=== PATIENT | female | born 1940 | race Caucasian/White ===

== ENCOUNTER 2017-05-31 21:08 | Inpatient (IN) | payer OTHER ==
[~2017-05-31] VITALS: Ht 160 cm; Wt 96.9 kg
[2017-05-31 21:41] LABS: CONDITION Y; DEFINITIVE SEE PRINTOUT; Hemoglobin 17.4 g/dL (12.2-16.2); Mean Corpuscular Hgb Conc. 32.4 g/dL (32.0-36.0); SUSPECT SEE PRINTOUT
[2017-05-31] MEDS ORDERED: VANCOMYCIN 1GM/250ML D5W 250 ML IV ONE ×2 (21:45→22:00)
[2017-05-31] MEDS ORDERED: cefTRIAXone 1GM/50ML D5W 50 ML IV ONE ×2 (21:46→22:00)
[2017-05-31 21:59] LABS: Hematocrit 53.8 % (36.0-46.0); Mean Corpuscular Hemoglobin 29.4 pg (28.0-32.0); Mean Corpuscular Volume 90.7 fL (80.0-100.0); Mean Platelet Volume 8.7 fL (6.9-10.8); Platelet Count (auto) 431 10^3/uL (140-450); Red Cell Distribution Width 15.9 % (11.8-14.3); White Blood Cell 21.5 10^3/uL (4.4-10.8)
[2017-05-31] MEDS ORDERED: ONDANSETRON HCL 4 MG/2 ML VIAL IV ONE (22:00)
[2017-05-31] MEDS ORDERED: HYDROmorphone HCL 2 MG/ML VL IV ONE (22:00)
[2017-05-31 22:01] LABS: INR 1.46 (0.9-1.15); Myelocytes % 0; Partial Thromboplastin Time 33.1 sec (22.64-33.71); Promyelocytes % 0; Reactive Lymphocytes 0
[2017-05-31 22:06] LABS: BUN/Creatinine Ratio 17.2; Calcium 8.5 mg/dL (8.5-10.1); Potassium 3.9 mmol/L (3.5-5.1)
[2017-05-31 22:11] LABS: Bilirubin, Total 0.9 mg/dL (0.2-1.0); Total Protein 6.3 g/dL (6.4-8.2)
[2017-05-31 22:44] LABS: Burr Cells MODERATE; Metamyelocytes % 2; Tear Drop Cells FEW
[2017-05-31 22:45] LABS: Large Platelets FEW; Platelet Estimate Adequa
[2017-05-31 22:53] LABS: B-Type Natriuretic Peptide 1048.56 pg/mL (0-100)
[2017-05-31 22:55] LABS: Temperature: 20.9 C (20.0-25.0)
[2017-06-01] VITALS (17 sets, daily range): BP systolic 84–115; BP diastolic 49–70
[2017-06-01] MEDS ORDERED: SODIUM CHLORIDE 0.9% 1,000 ML IV ONE
[2017-06-01 00:41] LABS: Lactic Acid w/Reflex 8.6 mmol/L (0.4-2.0)
[2017-06-01 00:44] LABS: REFLEX LACTIC ACID YES OR NO YES
[2017-06-01] MEDS ORDERED: DIGOXIN (250MCG/ML) 2 ML AMPULE IV ONE (02:30)
[2017-06-01] MEDS ORDERED: FUROSEMIDE 20 MG/2 ML VIAL IV ONE ×2 (02:30→04:30)
[2017-06-01] MEDS ORDERED: DILTIAZEM HCL 25 MG/5 ML VIAL IV ONE (02:30)
[2017-06-01] MEDS ORDERED: ONDANSETRON HCL 4 MG/2 ML VIAL IV PRN (04:30)
[2017-06-01] MEDS ORDERED: NITROGLYCERIN 0.4 MG SL TAB SL PRN (04:30)
[2017-06-01] MEDS ORDERED: ALBUMIN 5% 250 ML IV ONE (04:30)
[2017-06-01] MEDS ORDERED: ACETAMINOPHEN 325 MG TAB PO PRN (04:30)
[2017-06-01] MEDS ORDERED: VANCOMYCIN PER PHARMACY 0 MG IV SCH (04:30)
[2017-06-01] MEDS ORDERED: ENOXAPARIN SOD 100 MG/1 ML SYRINGE SC ONE (04:30)
[2017-06-01] MEDS ORDERED: AMIODARONE HCL 150 MG in D5W 5% 100 ML IV ONE (04:30)
[2017-06-01] MEDS ORDERED: MORPHINE SULF INJ 2 MG/ML SYRINGE 1ML IV PRN (04:30)
[2017-06-01] MEDS ORDERED: AMIODARONE HCL 900 MG in DEXTROSE 500 ML IV SCH (04:31)
[2017-06-01] MEDS: NOREPINEPHRINE BITARTRATE 250 ML IV SCH ×2 (04:36→22:00)
[2017-06-01 04:53] LABS: Allen Test Yes; Blood 02Sat 96.1 % (96-100); Blood COHb 0.1 % (0.5-1.5); Blood MetHb 0.4 % (0.0-1.5); HCO3 18.2 mmol/L (22-26.0); HHb 3.9 % (0.0-5.0); MODE NASAL CANNULA; O2Hb 95.6 % (94.0-97.0); PCO2 32.7 mmHg (35.0-45.0); PCO2(T) 32.7 mmHg (35.0-45.0); PO2 91.4 mmHg (80.0-100.0); PO2(T) 91.4 mmHg (80.0-100.0); Room 1017-ERT; Sample Type Arterial; pH 7.363 (7.350-7.450)
[2017-06-01] MEDS: SODIUM CHLORIDE 0.9% 1,000 ML IV SCH ×2 (05:00→21:44)
[2017-06-01] MEDS ORDERED: AMIODARONE HCL (50 MG/ ML) 3 ML VIAL IV ONE (05:34)
[2017-06-01 05:51] LABS: Albumin 1.7 g/dL (3.4-5.0); BUN/Creatinine Ratio 20.3; Calcium 8.1 mg/dL (8.5-10.1); Potassium 3.5 mmol/L (3.5-5.1)
[2017-06-01 05:54] LABS: Bilirubin, Total 0.6 mg/dL (0.2-1.0); Total Protein 5.1 g/dL (6.4-8.2)
[2017-06-01] MEDS ORDERED: FUROSEMIDE 20 MG/2 ML VIAL IV SCH (06:00)
[2017-06-01 06:37] LABS: Urine Bilirubin Negative (Negative); Urine Blood Negative /uL (Negative); Urine Color Yellow (Yellow); Urine Glucose Normal (Normal); Urine Hyaline Cast FEW /lpf (0 - 2); Urine Ketone TRACE (Negative); Urine Mucus FEW (None Seen); Urine Nitrite Negative (Negative); Urine RBC <1 /hpf (0 - 4); Urine Urobilinogen Normal (Negative); Urine pH 5.5 (5.0-8.0)
[2017-06-01] MEDS ORDERED: FURO80TA PO (08:30)
[2017-06-01] MEDS ORDERED: PHEN1TAB64 PO (08:30)
[2017-06-01] MEDS ORDERED: MORP30TA39 PO (08:30)
[2017-06-01] MEDS ORDERED: POTA10TA51 PO (08:34)
[2017-06-01] MEDS ORDERED: LEVO-28 PO (08:34)
[2017-06-01] MEDS ORDERED: CLOP75TA28 PO (08:34)
[2017-06-01] MEDS ORDERED: DOXY50CA PO (08:34)
[2017-06-01] MEDS ORDERED: cefTRIAXone 1GM/50ML D5W 50 ML IV SCH (09:00)
[2017-06-01] MEDS: PANTOPRAZOLE 40 MG/10 ML VIAL IV SCH (10:30)
[2017-06-01] MEDS: CLOPIDOGREL BISULFATE 75 MG TAB PO SCH (10:30)
[2017-06-01] MEDS: ENOXAPARIN SOD 40 MG/0.4 ML SYRINGE SC SCH (10:30)
[2017-06-01] MEDS: AMIODARONE HCL 900 MG in DEXTROSE 500 ML IV SCH (10:30)
[2017-06-01] MEDS ORDERED: PIPERACILLIN-TAZO 4.5GM 100 ML IV SCH ×2 (12:00)
[2017-06-01] MEDS: MORPHINE SULF 30 mg ER tab PO SCH ×2 (12:42→18:30)
[2017-06-01] MEDS ORDERED: ALBUTEROL SULF 2.5 MG/0.5ML(0.5%) NEB SOLN ONE (14:26)
[2017-06-01] MEDS ORDERED: IPRATROPIUM BROM 0.5 MG/2.5ML INH SOL ONE (14:26)
[2017-06-01] MEDS ORDERED: BUMETANIDE (0.25MG/ML) 4 ML VIAL IV ONE (14:45)
[2017-06-01] MEDS: CLINDAMYCIN 900MG IV 50 ML IV SCH ×2 (15:42→21:46)
[2017-06-01] MEDS: PHENYLEPHRINE INJ 20 MG in SODIUM CHL 0.9% 250 ML IV SCH ×2 (17:41→23:10)
[2017-06-01] MEDS ORDERED: VANCOMYCIN 1,250 MG in D5W 5% 250 ML IV SCH (18:00)
[2017-06-01] MEDS ORDERED: VANCOMYCIN 1,250 MG in D5W 5% 250 ML IV ONE (18:00)
[2017-06-01] MEDS: ALBUTEROL SULF 2.5 MG/0.5ML(0.5%) NEB SOLN NEB SCH (18:04)
[2017-06-01] MEDS: IPRATROPIUM BROM 0.5 MG/2.5ML INH SOL NEB SCH (18:04)
[2017-06-02] VITALS (96 sets, daily range): BP systolic 74–154; BP diastolic 40–84
[2017-06-02] MEDS: ALBUTEROL SULF 2.5 MG/0.5ML(0.5%) NEB SOLN NEB SCH ×4 (00:37→18:35)
[2017-06-02] MEDS: IPRATROPIUM BROM 0.5 MG/2.5ML INH SOL NEB SCH ×4 (00:37→18:35)
[2017-06-02] MEDS: NOREPINEPHRINE BITARTRATE 250 ML IV SCH ×2 (02:15→06:45)
[2017-06-02] MEDS: PHENYLEPHRINE INJ 20 MG in SODIUM CHL 0.9% 250 ML IV SCH ×2 (02:33→06:40)
[2017-06-02] MEDS: CLINDAMYCIN 900MG IV 50 ML IV SCH ×3 (05:50→21:51)
[2017-06-02] MEDS: MORPHINE SULF 30 mg ER tab PO SCH ×4 (05:51→18:24)
[2017-06-02] MEDS ORDERED: BUMETANIDE (0.25MG/ML) 4 ML VIAL IV SCH (06:00)
[2017-06-02 06:41] LABS: CONDITION Y; Hemoglobin 14.3 g/dL (12.2-16.2); Mean Corpuscular Hemoglobin 29.6 pg (28.0-32.0); Mean Corpuscular Hgb Conc. 33.3 g/dL (32.0-36.0); Mean Corpuscular Volume 88.9 fL (80.0-100.0); Platelet Count (auto) 429 10^3/uL (140-450); Red Cell Distribution Width 16.1 % (11.8-14.3); SUSPECT SEE PRINTOUT; White Blood Cell 28.6 10^3/uL (4.4-10.8)
[2017-06-02] MEDS: AMIODARONE HCL 900 MG in DEXTROSE 500 ML IV SCH ×2 (06:45→10:31)
[2017-06-02 06:48] LABS: Metamyelocytes % 0; Myelocytes % 0; Promyelocytes % 0; Reactive Lymphocytes 0
[2017-06-02 07:16] LABS: Albumin 1.6 g/dL (3.4-5.0); BUN/Creatinine Ratio 21.1; Bilirubin, Total 0.8 mg/dL (0.2-1.0); Calcium 7.5 mg/dL (8.5-10.1); Potassium 4.2 mmol/L (3.5-5.1); Total Protein 5.3 g/dL (6.4-8.2)
[2017-06-02 07:19] LABS: Platelet Estimate Adequate; RBC Morphology Normal
[2017-06-02] MEDS: ENOXAPARIN SOD 40 MG/0.4 ML SYRINGE SC SCH (09:38)
[2017-06-02] MEDS: PANTOPRAZOLE 40 MG/10 ML VIAL IV SCH (09:38)
[2017-06-02] MEDS ORDERED: DOXYCYCLINE HYC 100MG/250ML 250 ML IV SCH (10:00)
[2017-06-02] MEDS: CLOPIDOGREL BISULFATE 75 MG TAB PO SCH (10:05)
[2017-06-02] MEDS: POTASSIUM CHL 20 Meq TABLET PO SCH (10:05)
[2017-06-02] MEDS ORDERED: METOPROLOL TARTRATE 25 MG TAB PO ONE (10:45)
[2017-06-02] MEDS: ALBUMIN 25% 100 ML IV SCH (11:30)
[2017-06-02] MEDS: PHENYLEPHRINE INJ 40 MG in SODIUM CHL 0.9% 250 ML IV SCH (12:21)
[2017-06-02] MEDS: BUMETANIDE (0.25MG/ML) 4 ML VIAL IV SCH (12:34)
[2017-06-02] MEDS: SODIUM CHLORIDE 0.9% 1,000 ML IV SCH (14:38)
[2017-06-02] MEDS ORDERED: CEFTRIAXONE SODIUM 2 GM in D5W 5% 50 ML IV ONE (16:15)
[2017-06-02] MEDS: LINEZOLID 600MG/300ML 300 ML IV SCH (18:24)
[2017-06-02] MEDS: METOPROLOL TARTRATE 25 MG TAB PO SCH (22:00)
[2017-06-03] VITALS (94 sets, daily range): BP systolic 94–155; BP diastolic 42–84
[2017-06-03] MEDS: IPRATROPIUM BROM 0.5 MG/2.5ML INH SOL NEB SCH ×4 (00:33→19:09)
[2017-06-03] MEDS: ALBUTEROL SULF 2.5 MG/0.5ML(0.5%) NEB SOLN NEB SCH ×4 (00:33→19:09)
[2017-06-03] MEDS: BUMETANIDE (0.25MG/ML) 4 ML VIAL IV SCH ×2 (01:00→13:25)
[2017-06-03 03:33] LABS: Hematocrit 44.1 % (36.0-46.0); Hemoglobin 14.1 g/dL (12.2-16.2); Mean Corpuscular Hemoglobin 28.9 pg (28.0-32.0); Mean Corpuscular Volume 90.5 fL (80.0-100.0); Mean Platelet Volume 7.7 fL (6.9-10.8); Platelet Count (auto) 320 10^3/uL (140-450); Red Cell Distribution Width 16.5 % (11.8-14.3); White Blood Cell 29.3 10^3/uL (4.4-10.8)
[2017-06-03 03:39] LABS: Metamyelocytes % 0; Myelocytes % 0; Promyelocytes % 0; Reactive Lymphocytes 0
[2017-06-03] MEDS: PHENYLEPHRINE INJ 40 MG in SODIUM CHL 0.9% 250 ML IV SCH ×2 (03:55→20:35)
[2017-06-03 03:58] LABS: Albumin 2.4 g/dL (3.4-5.0); BUN/Creatinine Ratio 23.9; Potassium 3.4 mmol/L (3.5-5.1)
[2017-06-03 04:01] LABS: Bilirubin, Total 0.8 mg/dL (0.2-1.0)
[2017-06-03 04:03] LABS: Anisocytosis Slight; Platelet Estimate Adequate
[2017-06-03] MEDS: MORPHINE SULF 30 mg ER tab PO SCH ×4 (06:00→17:53)
[2017-06-03] MEDS: LINEZOLID 600MG/300ML 300 ML IV SCH ×2 (06:00→17:53)
[2017-06-03] MEDS: CLINDAMYCIN 900MG IV 50 ML IV SCH ×3 (06:05→22:00)
[2017-06-03] MEDS: SODIUM CHLORIDE 0.9% 1,000 ML IV SCH ×2 (06:21→23:01)
[2017-06-03] MEDS: CEFTRIAXONE SODIUM 2 GM in D5W 5% 50 ML IV SCH (09:54)
[2017-06-03] MEDS: POTASSIUM CHL 20 Meq TABLET PO SCH (09:54)
[2017-06-03] MEDS: PANTOPRAZOLE 40 MG/10 ML VIAL IV SCH (09:54)
[2017-06-03] MEDS: CLOPIDOGREL BISULFATE 75 MG TAB PO SCH (09:55)
[2017-06-03] MEDS: ENOXAPARIN SOD 40 MG/0.4 ML SYRINGE SC SCH (09:55)
[2017-06-03] MEDS: AMIODARONE HCL 900 MG in DEXTROSE 500 ML IV SCH (09:55)
[2017-06-03] MEDS: METOPROLOL TARTRATE 25 MG TAB PO SCH ×2 (09:55→22:26)
[2017-06-03] MEDS: ALBUMIN 25% 100 ML IV SCH ×2 (12:00)
[2017-06-03] MEDS: HYDROcodone-ACET 5/325MG TAB PO PRN (12:53)
[2017-06-03] MEDS ORDERED: LIDOCAINE 1% HCL (LOCAL ANESTH.) INJ 20ML MDV ID ONE (20:45)
[2017-06-03] MEDS: SODIUM CHLOR 0.9% PF (SALINE LOCK) 10ML VIAL IV SCH (22:26)
[2017-06-04] VITALS (57 sets, daily range): BP systolic 102–155; BP diastolic 41–89
[2017-06-04] MEDS: ALBUMIN 25% 100 ML IV SCH
[2017-06-04] MEDS: BUMETANIDE (0.25MG/ML) 4 ML VIAL IV SCH ×2 (01:00→13:00)
[2017-06-04] MEDS: NOREPINEPHRINE BITARTRATE 250 ML IV SCH (02:30)
[2017-06-04 03:35] LABS: Hematocrit 42.3 % (36.0-46.0); Hemoglobin 14.2 g/dL (12.2-16.2); Mean Corpuscular Hemoglobin 29.1 pg (28.0-32.0); Mean Corpuscular Hgb Conc. 33.5 g/dL (32.0-36.0); Mean Corpuscular Volume 86.7 fL (80.0-100.0); Mean Platelet Volume 7.9 fL (6.9-10.8); Platelet Count (auto) 277 10^3/uL (140-450); Red Cell Distribution Width 15.7 % (11.8-14.3); White Blood Cell 20.9 10^3/uL (4.4-10.8)
[2017-06-04 03:39] LABS: Metamyelocytes % 0; Myelocytes % 0; Promyelocytes % 0; Reactive Lymphocytes 0
[2017-06-04 04:06] LABS: Albumin 2.8 g/dL (3.4-5.0); BUN/Creatinine Ratio 26.2; Bilirubin, Total 0.9 mg/dL (0.2-1.0); Calcium 8.5 mg/dL (8.5-10.1); Total Protein 6.4 g/dL (6.4-8.2)
[2017-06-04 04:11] LABS: Potassium 2.6 mmol/L (3.5-5.1)
[2017-06-04 04:43] LABS: Platelet Estimate Adequate; Stomatocytes Few
[2017-06-04] MEDS: MORPHINE SULF 30 mg ER tab PO SCH ×4 (06:00→17:33)
[2017-06-04] MEDS: LINEZOLID 600MG/300ML 300 ML IV SCH ×2 (06:01→17:33)
[2017-06-04] MEDS: CLINDAMYCIN 900MG IV 50 ML IV SCH ×3 (06:01→23:05)
[2017-06-04] MEDS: IPRATROPIUM BROM 0.5 MG/2.5ML INH SOL NEB SCH ×4 (06:26→19:09)
[2017-06-04] MEDS: ALBUTEROL SULF 2.5 MG/0.5ML(0.5%) NEB SOLN NEB SCH ×4 (06:26→19:09)
[2017-06-04] MEDS: POTASSIUM CHL 20MEQ/100ML 100 ML IV SCH ×2 (08:11→09:24)
[2017-06-04] MEDS: PANTOPRAZOLE 40 MG/10 ML VIAL IV SCH (09:13)
[2017-06-04] MEDS: CLOPIDOGREL BISULFATE 75 MG TAB PO SCH (09:14)
[2017-06-04] MEDS: POTASSIUM CHL 20 Meq TABLET PO SCH (09:14)
[2017-06-04] MEDS: METOPROLOL TARTRATE 25 MG TAB PO SCH ×2 (09:14→22:00)
[2017-06-04] MEDS: HYDROcodone-ACET 5/325MG TAB PO PRN ×3 (09:14→23:07)
[2017-06-04] MEDS: ENOXAPARIN SOD 40 MG/0.4 ML SYRINGE SC SCH (09:15)
[2017-06-04] MEDS: SODIUM CHLOR 0.9% PF (SALINE LOCK) 10ML VIAL IV SCH ×2 (09:15→22:00)
[2017-06-04] MEDS: CEFTRIAXONE SODIUM 2 GM in D5W 5% 50 ML IV SCH (09:24)
[2017-06-04] MEDS ORDERED: SOD CHL 0.9%/ KCL 40MEQ 1,000 ML IV SCH (11:45)
[2017-06-04] MEDS: SOD CHL 0.9%/ KCL 40MEQ 1,000 ML IV SCH ×2 (11:45→23:08)
[2017-06-04] MEDS: PHENYLEPHRINE INJ 40 MG in SODIUM CHL 0.9% 250 ML IV SCH (13:15)
[2017-06-04] MEDS ORDERED: POTASSIUM CHL 20 Meq TABLET PO ONE ×3 (15:05→20:00)
[2017-06-05] VITALS (42 sets, daily range): BP systolic 101–141; BP diastolic 42–83
[2017-06-05] MEDS: ALBUTEROL SULF 2.5 MG/0.5ML(0.5%) NEB SOLN NEB SCH ×4 (00:43→18:36)
[2017-06-05] MEDS: IPRATROPIUM BROM 0.5 MG/2.5ML INH SOL NEB SCH ×4 (00:43→18:37)
[2017-06-05] MEDS: BUMETANIDE (0.25MG/ML) 4 ML VIAL IV SCH ×2 (01:06→13:29)
[2017-06-05] MEDS: NOREPINEPHRINE BITARTRATE 250 ML IV SCH (02:30)
[2017-06-05] MEDS: MORPHINE SULF 30 mg ER tab PO SCH ×4 (05:39→18:36)
[2017-06-05] MEDS: LINEZOLID 600MG/300ML 300 ML IV SCH ×2 (05:39→18:36)
[2017-06-05] MEDS: CLINDAMYCIN 900MG IV 50 ML IV SCH ×3 (05:39→22:00)
[2017-06-05] MEDS: PHENYLEPHRINE INJ 40 MG in SODIUM CHL 0.9% 250 ML IV SCH (05:55)
[2017-06-05 08:40] LABS: Albumin 2.2 g/dL (3.4-5.0); BUN/Creatinine Ratio 28.6; Calcium 7.9 mg/dL (8.5-10.1); Potassium 3.7 mmol/L (3.5-5.1)
[2017-06-05 08:43] LABS: Bilirubin, Total 0.7 mg/dL (0.2-1.0); Total Protein 5.4 g/dL (6.4-8.2)
[2017-06-05] MEDS: CLOPIDOGREL BISULFATE 75 MG TAB PO SCH (09:45)
[2017-06-05] MEDS: PANTOPRAZOLE 40 MG/10 ML VIAL IV SCH (09:45)
[2017-06-05] MEDS: POTASSIUM CHL 20 Meq TABLET PO SCH (09:47)
[2017-06-05] MEDS: METOPROLOL TARTRATE 25 MG TAB PO SCH ×2 (09:47→22:00)
[2017-06-05] MEDS: CEFTRIAXONE SODIUM 2 GM in D5W 5% 50 ML IV SCH (09:48)
[2017-06-05] MEDS: SODIUM CHLOR 0.9% PF (SALINE LOCK) 10ML VIAL IV SCH ×2 (09:55→22:00)
[2017-06-05] MEDS: ENOXAPARIN SOD 40 MG/0.4 ML SYRINGE SC SCH (10:14)
[2017-06-05 10:38] LABS: B-Type Natriuretic Peptide 334.56 pg/mL (0-100)
[2017-06-05] MEDS: HYDROcodone-ACET 5/325MG TAB PO PRN (13:30)
[2017-06-05] MEDS ORDERED: POTASSIUM CHL 20 Meq TABLET PO ONE (13:45)
[2017-06-05] MEDS: SOD CHL 0.9%/ KCL 40MEQ 1,000 ML IV SCH (21:05)
[2017-06-06] MEDS: IPRATROPIUM BROM 0.5 MG/2.5ML INH SOL NEB SCH ×4 (00:22→18:39)
[2017-06-06] MEDS: ALBUTEROL SULF 2.5 MG/0.5ML(0.5%) NEB SOLN NEB SCH ×4 (00:23→18:39)
[2017-06-06] MEDS: MORPHINE SULF 30 mg ER tab PO SCH ×5 (02:11→23:59)
[2017-06-06] MEDS: HYDROcodone-ACET 5/325MG TAB PO PRN (04:53)
[2017-06-06 05:00] VITALS: BP 111/79
[2017-06-06] MEDS: CLINDAMYCIN 900MG IV 50 ML IV SCH ×3 (05:49→22:15)
[2017-06-06] MEDS: LINEZOLID 600MG/300ML 300 ML IV SCH ×2 (06:58→18:05)
[2017-06-06] MEDS: SOD CHL 0.9%/ KCL 40MEQ 1,000 ML IV SCH (06:59)
[2017-06-06] MEDS: BUMETANIDE (0.25MG/ML) 4 ML VIAL IV SCH (06:59)
[2017-06-06 08:00] VITALS: BP 128/73
[2017-06-06 08:04] VITALS: BP 128/73
[2017-06-06] MEDS: CEFTRIAXONE SODIUM 2 GM in D5W 5% 50 ML IV SCH (10:00)
[2017-06-06] MEDS: PANTOPRAZOLE 40 MG/10 ML VIAL IV SCH (10:03)
[2017-06-06] MEDS: SODIUM CHLOR 0.9% PF (SALINE LOCK) 10ML VIAL IV SCH ×2 (10:03→22:16)
[2017-06-06] MEDS: CLOPIDOGREL BISULFATE 75 MG TAB PO SCH (10:04)
[2017-06-06] MEDS: METOPROLOL TARTRATE 25 MG TAB PO SCH ×2 (10:04→22:16)
[2017-06-06] MEDS: ENOXAPARIN SOD 40 MG/0.4 ML SYRINGE SC SCH (10:04)
[2017-06-06] MEDS: POTASSIUM CHL 20 Meq TABLET PO SCH (10:04)
[2017-06-06 12:21] VITALS: BP 113/58
[2017-06-06 16:37] VITALS: BP 100/57
[2017-06-06] MEDS: MULTIPLE VITAMINS W/ MINERALS TAB PO SCH (18:05)
[2017-06-06 21:59] VITALS: BP 116/61
[2017-06-06] MEDS: ASCORBIC ACID 500 MG TAB PO SCH (22:16)
[2017-06-06] MEDS: PRO-STAT 64 30ML PO SCH (22:16)
[2017-06-07] MEDS: SOD CHL 0.9%/ KCL 40MEQ 1,000 ML IV SCH ×2 (01:47→23:16)
[2017-06-07 05:00] VITALS: BP 128/68
[2017-06-07] MEDS: CLINDAMYCIN 900MG IV 50 ML IV SCH ×2 (05:36→15:06)
[2017-06-07 06:04] LABS: Albumin 2.1 g/dL (3.4-5.0); BUN/Creatinine Ratio 33.9; Bilirubin, Total 0.6 mg/dL (0.2-1.0); Calcium 7.1 mg/dL (8.5-10.1); Potassium 3.9 mmol/L (3.5-5.1); Total Protein 5.5 g/dL (6.4-8.2)
[2017-06-07] MEDS: ALBUTEROL SULF 2.5 MG/0.5ML(0.5%) NEB SOLN NEB SCH ×4 (06:28→19:17)
[2017-06-07] MEDS: IPRATROPIUM BROM 0.5 MG/2.5ML INH SOL NEB SCH ×4 (06:28→19:17)
[2017-06-07] MEDS: LINEZOLID 600MG/300ML 300 ML IV SCH (06:33)
[2017-06-07] MEDS: MORPHINE SULF 30 mg ER tab PO SCH ×3 (06:33→18:11)
[2017-06-07] MEDS: BUMETANIDE (0.25MG/ML) 4 ML VIAL IV SCH (06:38)
[2017-06-07 09:00] VITALS: BP 128/73
[2017-06-07 09:30] LABS: Hematocrit 44.5 % (36.0-46.0); Hemoglobin 14.9 g/dL (12.2-16.2); Mean Corpuscular Hemoglobin 29.6 pg (28.0-32.0); Mean Corpuscular Hgb Conc. 33.5 g/dL (32.0-36.0); Mean Corpuscular Volume 88.4 fL (80.0-100.0); Mean Platelet Volume 7.7 fL (6.9-10.8); Platelet Count (auto) 237 10^3/uL (140-450); White Blood Cell 15.9 10^3/uL (4.4-10.8)
[2017-06-07 09:33] LABS: Metamyelocytes % 0; Myelocytes % 0; Promyelocytes % 0; Reactive Lymphocytes 0
[2017-06-07] MEDS: CEFTRIAXONE SODIUM 2 GM in D5W 5% 50 ML IV SCH (10:00)
[2017-06-07 10:03] LABS: Platelet Estimate Adequate
[2017-06-07] MEDS: PANTOPRAZOLE 40 MG/10 ML VIAL IV SCH (11:59)
[2017-06-07] MEDS: SODIUM CHLOR 0.9% PF (SALINE LOCK) 10ML VIAL IV SCH ×2 (11:59→22:54)
[2017-06-07] MEDS: POTASSIUM CHL 20 Meq TABLET PO SCH (12:00)
[2017-06-07] MEDS: MULTIPLE VITAMINS W/ MINERALS TAB PO SCH (12:00)
[2017-06-07] MEDS: METOPROLOL TARTRATE 25 MG TAB PO SCH ×2 (12:00→22:55)
[2017-06-07] MEDS: CLOPIDOGREL BISULFATE 75 MG TAB PO SCH (12:01)
[2017-06-07] MEDS: PRO-STAT 64 30ML PO SCH ×2 (12:01→22:00)
[2017-06-07] MEDS: ASCORBIC ACID 500 MG TAB PO SCH ×2 (12:01→22:55)
[2017-06-07] MEDS: ENOXAPARIN SOD 40 MG/0.4 ML SYRINGE SC SCH (12:02)
[2017-06-07 13:00] VITALS: BP 116/59
[2017-06-07] MEDS ORDERED: LIDOCAINE VISCOUS 2% 15ML UD MT PRN (13:15)
[2017-06-07] MEDS: NYSTATIN (MOUTH-THROAT) 500,000 UNITS/5 ML SUSP MT SCH ×3 (13:30→22:54)
[2017-06-07 17:37] VITALS: BP 102/52
[2017-06-07] MEDS ORDERED: VANCOMYCIN PER PHARMACY 0 MG IV SCH (18:15)
[2017-06-07] MEDS ORDERED: VANCOMYCIN 1GM/250ML D5W 250 ML IV ONE (18:15)
[2017-06-07] MEDS ORDERED: VANCOMYCIN 500 MG in D5W 5% 100 ML IV SCH (18:30)
[2017-06-07] MEDS: VANCOMYCIN 500 MG in D5W 5% 100 ML IV SCH (19:00)
[2017-06-07 21:17] VITALS: BP 137/67
[2017-06-08] VITALS (8 sets, daily range): BP systolic 104–145; BP diastolic 51–78
[2017-06-08] MEDS: MORPHINE SULF 30 mg ER tab PO SCH ×4 (00:21→18:27)
[2017-06-08] MEDS: ALBUTEROL SULF 2.5 MG/0.5ML(0.5%) NEB SOLN NEB SCH ×4 (00:39→18:57)
[2017-06-08] MEDS: IPRATROPIUM BROM 0.5 MG/2.5ML INH SOL NEB SCH ×4 (00:39→18:57)
[2017-06-08 05:41] LABS: Hematocrit 40.9 % (36.0-46.0); Hemoglobin 13.6 g/dL (12.2-16.2); Mean Corpuscular Hemoglobin 29.1 pg (28.0-32.0); Mean Corpuscular Hgb Conc. 33.2 g/dL (32.0-36.0); Mean Corpuscular Volume 87.7 fL (80.0-100.0); Mean Platelet Volume 7.5 fL (6.9-10.8); Platelet Count (auto) 242 10^3/uL (140-450); Red Cell Distribution Width 15.5 % (11.8-14.3); White Blood Cell 16.8 10^3/uL (4.4-10.8)
[2017-06-08 05:47] LABS: Metamyelocytes % 0; Myelocytes % 0; Promyelocytes % 0; Reactive Lymphocytes 0
[2017-06-08 06:04] LABS: BUN/Creatinine Ratio 51.1; Calcium 7.5 mg/dL (8.5-10.1); Potassium 3.9 mmol/L (3.5-5.1)
[2017-06-08] MEDS: NYSTATIN (MOUTH-THROAT) 500,000 UNITS/5 ML SUSP MT SCH ×4 (07:07→22:08)
[2017-06-08] MEDS: BUMETANIDE (0.25MG/ML) 4 ML VIAL IV SCH (07:09)
[2017-06-08] MEDS: VANCOMYCIN 500 MG in D5W 5% 100 ML IV SCH ×2 (08:30→20:43)
[2017-06-08 09:40] LABS: Platelet Estimate Adequate
[2017-06-08] MEDS: SODIUM CHLOR 0.9% PF (SALINE LOCK) 10ML VIAL IV SCH ×2 (10:00→22:08)
[2017-06-08] MEDS: PRO-STAT 64 30ML PO SCH ×2 (10:20→22:08)
[2017-06-08] MEDS: ENOXAPARIN SOD 40 MG/0.4 ML SYRINGE SC SCH (10:20)
[2017-06-08] MEDS: PANTOPRAZOLE 40 MG/10 ML VIAL IV SCH (10:20)
[2017-06-08] MEDS: ASCORBIC ACID 500 MG TAB PO SCH ×2 (10:21→22:08)
[2017-06-08] MEDS: METOPROLOL TARTRATE 25 MG TAB PO SCH ×2 (10:22→22:00)
[2017-06-08] MEDS: MULTIPLE VITAMINS W/ MINERALS TAB PO SCH (10:23)
[2017-06-08] MEDS: POTASSIUM CHL 20 Meq TABLET PO SCH (10:23)
[2017-06-08] MEDS: CLOPIDOGREL BISULFATE 75 MG TAB PO SCH (10:23)
[2017-06-08] MEDS: CEFTRIAXONE SODIUM 2 GM in D5W 5% 50 ML IV SCH (13:00)
[2017-06-08] MEDS: SOD CHL 0.9%/ KCL 40MEQ 1,000 ML IV SCH (16:02)
[2017-06-09] MEDS: IPRATROPIUM BROM 0.5 MG/2.5ML INH SOL NEB SCH ×4 (00:54→18:29)
[2017-06-09] MEDS: ALBUTEROL SULF 2.5 MG/0.5ML(0.5%) NEB SOLN NEB SCH ×4 (00:54→18:29)
[2017-06-09] MEDS: MORPHINE SULF 30 mg ER tab PO SCH ×4 (00:57→18:28)
[2017-06-09 05:00] VITALS: BP 118/63
[2017-06-09] MEDS: NYSTATIN (MOUTH-THROAT) 500,000 UNITS/5 ML SUSP MT SCH ×4 (06:02→21:55)
[2017-06-09] MEDS: BUMETANIDE (0.25MG/ML) 4 ML VIAL IV SCH (06:02)
[2017-06-09 06:46] LABS: Hematocrit 39.5 % (36.0-46.0); Mean Corpuscular Hemoglobin 28.8 pg (28.0-32.0); Mean Corpuscular Volume 87.3 fL (80.0-100.0); Mean Platelet Volume 7.3 fL (6.9-10.8); Platelet Count (auto) 247 10^3/uL (140-450); Red Cell Distribution Width 15.6 % (11.8-14.3); White Blood Cell 16.7 10^3/uL (4.4-10.8)
[2017-06-09 06:53] LABS: Metamyelocytes % 0; Myelocytes % 0; Promyelocytes % 0; Reactive Lymphocytes 0
[2017-06-09 07:09] LABS: BUN/Creatinine Ratio 42.6; Bilirubin, Total 0.5 mg/dL (0.2-1.0); Calcium 7.9 mg/dL (8.5-10.1); Potassium 4.5 mmol/L (3.5-5.1); Total Protein 5.2 g/dL (6.4-8.2)
[2017-06-09 09:35] VITALS: BP 122/57
[2017-06-09] MEDS: PRO-STAT 64 30ML PO SCH ×2 (10:00→21:56)
[2017-06-09] MEDS: PANTOPRAZOLE 40 MG/10 ML VIAL IV SCH (10:07)
[2017-06-09] MEDS: VANCOMYCIN 1,250 MG in D5W 5% 250 ML IV SCH ×2 (10:07→22:19)
[2017-06-09] MEDS: SOD CHL 0.9%/ KCL 40MEQ 1,000 ML IV SCH (10:08)
[2017-06-09] MEDS: POTASSIUM CHL 20 Meq TABLET PO SCH (10:08)
[2017-06-09] MEDS: SODIUM CHLOR 0.9% PF (SALINE LOCK) 10ML VIAL IV SCH ×2 (10:08→21:54)
[2017-06-09] MEDS: MULTIPLE VITAMINS W/ MINERALS TAB PO SCH (10:08)
[2017-06-09] MEDS: CLOPIDOGREL BISULFATE 75 MG TAB PO SCH (10:09)
[2017-06-09] MEDS: ASCORBIC ACID 500 MG TAB PO SCH ×2 (10:09→21:56)
[2017-06-09] MEDS: ENOXAPARIN SOD 40 MG/0.4 ML SYRINGE SC SCH (10:10)
[2017-06-09] MEDS: METOPROLOL TARTRATE 25 MG TAB PO SCH ×2 (10:10→21:56)
[2017-06-09] MEDS: CEFTRIAXONE SODIUM 2 GM in D5W 5% 50 ML IV SCH (10:12)
[2017-06-09 13:00] VITALS: BP 129/61
[2017-06-09 15:14] LABS: Platelet Estimate Adequate
[2017-06-09 17:02] VITALS: BP 114/54
[2017-06-09 22:00] VITALS: BP 120/71
[2017-06-10] MEDS: ALBUTEROL SULF 2.5 MG/0.5ML(0.5%) NEB SOLN NEB SCH ×4 (01:01→19:07)
[2017-06-10] MEDS: IPRATROPIUM BROM 0.5 MG/2.5ML INH SOL NEB SCH ×4 (01:01→19:07)
[2017-06-10] MEDS: MORPHINE SULF 30 mg ER tab PO SCH ×4 (02:05→17:44)
[2017-06-10] MEDS: SOD CHL 0.9%/ KCL 40MEQ 1,000 ML IV SCH ×2 (02:05→17:45)
[2017-06-10 05:00] VITALS: BP 112/43
[2017-06-10] MEDS: NYSTATIN (MOUTH-THROAT) 500,000 UNITS/5 ML SUSP MT SCH ×4 (06:28→22:00)
[2017-06-10] MEDS: BUMETANIDE (0.25MG/ML) 4 ML VIAL IV SCH (06:30)
[2017-06-10 07:08] LABS: Potassium 4.9 mmol/L (3.5-5.1)
[2017-06-10 07:13] LABS: Albumin 1.9 g/dL (3.4-5.0); BUN/Creatinine Ratio 34.7; Bilirubin, Total 0.6 mg/dL (0.2-1.0); Calcium 7.9 mg/dL (8.5-10.1)
[2017-06-10 07:30] VITALS: BP 112/43
[2017-06-10 08:05] VITALS: BP 97/52
[2017-06-10] MEDS: ASCORBIC ACID 500 MG TAB PO SCH ×2 (09:54→22:00)
[2017-06-10] MEDS: HYDROcodone-ACET 5/325MG TAB PO PRN ×3 (09:54→16:55)
[2017-06-10] MEDS: MULTIPLE VITAMINS W/ MINERALS TAB PO SCH (09:54)
[2017-06-10] MEDS: CLOPIDOGREL BISULFATE 75 MG TAB PO SCH (09:54)
[2017-06-10] MEDS: ENOXAPARIN SOD 40 MG/0.4 ML SYRINGE SC SCH (09:55)
[2017-06-10] MEDS: METOPROLOL TARTRATE 25 MG TAB PO SCH ×2 (10:00→22:00)
[2017-06-10] MEDS: POTASSIUM CHL 20 Meq TABLET PO SCH (10:09)
[2017-06-10] MEDS: CEFTRIAXONE SODIUM 2 GM in D5W 5% 50 ML IV SCH (10:09)
[2017-06-10] MEDS: PRO-STAT 64 30ML PO SCH ×2 (10:15→22:00)
[2017-06-10] MEDS: SODIUM CHLOR 0.9% PF (SALINE LOCK) 10ML VIAL IV SCH ×2 (10:15→22:00)
[2017-06-10] MEDS: PANTOPRAZOLE 40 MG/10 ML VIAL IV SCH (10:22)
[2017-06-10] MEDS: VANCOMYCIN 1,250 MG in D5W 5% 250 ML IV SCH ×2 (10:23→22:00)
[2017-06-10 12:00] VITALS: BP 112/49
[2017-06-10 15:19] VITALS: BP 97/52
[2017-06-10 16:55] VITALS: BP 118/60
== END 2017-06-10 22:20 | DRG 871 ==
LOC: EDBD 21:08 → ER 21:13 → TELE 21:14 → ICU WEST 06-01 20:03 → TELE-WESTW 06-05 20:55
PROVIDERS: ADMIT Nurse Practitioner; ATTEND Internal Medicine
PROC: 02H633Z Insertion of Infusion Device into Right Atrium, Percutaneous Approach (ICD-10-PCS; principal; 2017-06-03)
DX: A40.9 Streptococcal sepsis, unspecified (principal); R65.21 Severe sepsis with septic shock; N17.0 Acute kidney failure with tubular necrosis; E43 Unspecified severe protein-calorie malnutrition; I50.33 Acute on chronic diastolic (congestive) heart failure; L89.319 Pressure ulcer of right buttock, unspecified stage; I48.91 Unspecified atrial fibrillation; B37.0 Candidal stomatitis; I13.0 Hypertensive heart and chronic kidney disease with heart failure and stage 1 through stage 4 chronic kidney disease, or unspecified chronic kidney disease; L03.115 Cellulitis of right lower limb; L03.116 Cellulitis of left lower limb; L03.311 Cellulitis of abdominal wall; F03.90 Unspecified dementia, unspecified severity, without behavioral disturbance, psychotic disturbance, mood disturbance, and anxiety; E27.8 Other specified disorders of adrenal gland; Z66 Do not resuscitate; Z78.1 Physical restraint status; N18.3 Chronic kidney disease, stage 3 (moderate); K43.9 Ventral hernia without obstruction or gangrene; F17.210 Nicotine dependence, cigarettes, uncomplicated; E66.01 Morbid (severe) obesity due to excess calories; E87.6 Hypokalemia; I73.9 Peripheral vascular disease, unspecified; I87.8 Other specified disorders of veins; I89.0 Lymphedema, not elsewhere classified; K21.9 Gastro-esophageal reflux disease without esophagitis; K76.0 Fatty (change of) liver, not elsewhere classified; M16.12 Unilateral primary osteoarthritis, left hip; M43.16 Spondylolisthesis, lumbar region; M46.90 Unspecified inflammatory spondylopathy, site unspecified; W06.XXXA Fall from bed, initial encounter; Z79.02 Long term (current) use of antithrombotics/antiplatelets; Z79.899 Other long term (current) drug therapy; Z86.73 Personal history of transient ischemic attack (TIA), and cerebral infarction without residual deficits; Z88.0 Allergy status to penicillin; Z68.37 Body mass index [BMI] 37.0-37.9, adult; Y93.84 Activity, sleeping; Y99.8 Other external cause status; Y92.009 Unspecified place in unspecified non-institutional (private) residence as the place of occurrence of the external cause; E65 Localized adiposity
CPT/HCPCS: 36415; 36569; 36600; 51702; 70450; 71010; 73700; 74176; 76705; 76775; 80048; 80053; 80202; 81001; 82088; 82150; 82570; 82805; 82962; 83605; 83615; 83690; 83880; 84132; 84156; 84244; 84300; 84484; 85007; 85027; 85379; 85610; 85730; 86160; 87040; 87077; 87081; 87186; 93005; 93306; 93926; 94640; 96365; 96367; 97110; 97163; 97530; A4565; C9113; J0696; J2405; J3480; J3490; J7060